=== PATIENT | male | born 1990 | race Caucasian/White ===

== ENCOUNTER 2017-05-11 13:27 | Outpatient (RCR) | payer OTHER | END 2017-05-27 13:22 | disposition home or self-care (01) | LOC: WSOH 13:27 | DX: S90.32XA Contusion of left foot, initial encounter (principal); W20.8XXA Other cause of strike by thrown, projected or falling object, initial encounter; Y92.512 Supermarket, store or market as the place of occurrence of the external cause; Y99.0 Civilian activity done for income or pay; Z88.0 Allergy status to penicillin ==

== ENCOUNTER 2018-01-24 18:34 | Emergency (ER) | payer BC ==
[~2018-01-24] VITALS: Ht 175.3 cm; Wt 97.7 kg
[2018-01-24 18:41] VITALS: TEMP 98.1
[2018-01-24] MEDS ORDERED: BACTRIM DS 8001 TAB PO (19:24)
[2018-01-24 20:02] VITALS: BP 122/79; PULSE 87
== END 2018-01-24 20:03 | disposition home or self-care (01) ==
LOC: COL.ER 18:34
DX: L03.115 Cellulitis of right lower limb (principal); F17.210 Nicotine dependence, cigarettes, uncomplicated

== ENCOUNTER 2018-01-26 00:01 | Emergency (ER) | payer BC ==
[~2018-01-26] VITALS: Ht 175.3 cm; Wt 97.7 kg
[~2018-01-26 00:01] MED LIST: BACTRIM DS 8001 TAB PO
[2018-01-26 00:08] VITALS: BP 122/76; TEMP 99.3
[2018-01-26] MEDS ORDERED: OMNICEF 300MG300 MG PO (00:33)
[2018-01-26] MEDS ORDERED: ZOFRAN ODT4 MG PO (00:33)
[2018-01-26] MEDS ORDERED: NORCO 325 MG-51 TAB PO (00:33)
[2018-01-26 00:48] VITALS: PULSE 84
== END 2018-01-26 00:50 | disposition home or self-care (01) ==
LOC: COL.ER 00:01
DX: L03.115 Cellulitis of right lower limb (principal)

== ENCOUNTER 2019-03-14 17:21 | Emergency (ER) | payer BC ==
[~2019-03-14] VITALS: Ht 175.3 cm; Wt 113.6 kg
[~2019-03-14 17:21] MED LIST changes: +NORCO 325 MG-51 TAB PO; +OMNICEF 300MG300 MG PO; +ZOFRAN ODT4 MG PO
[2019-03-14 17:36] VITALS: BP 126/73; TEMP 98.6
[2019-03-14] MEDS ORDERED: NORCO 325 MG-51 TAB PO (18:16)
[2019-03-14] MEDS ORDERED: BACTRIM DS 8001 TAB PO (18:16)
[2019-03-14 18:33] VITALS: PULSE 90
== END 2019-03-14 18:34 | disposition home or self-care (01) ==
LOC: COL.ER 17:21
DX: L02.211 Cutaneous abscess of abdominal wall (principal); G43.909 Migraine, unspecified, not intractable, without status migrainosus; F17.210 Nicotine dependence, cigarettes, uncomplicated; Z90.89 Acquired absence of other organs; Z88.0 Allergy status to penicillin; Z90.49 Acquired absence of other specified parts of digestive tract; Z23 Encounter for immunization

== ENCOUNTER → 2021-05-14 | Outpatient (CLI) | payer OTHER | LOC: ZCOL.LAB 09:56 | DX: U07.1 COVID-19 (principal) ==

== ENCOUNTER 2021-05-31 09:04 | Emergency (ER) | payer OTHER ==
[~2021-05-31] VITALS: Ht 175.3 cm; Wt 113.6 kg
[2021-05-31 09:15] VITALS: TEMP 98
[2021-05-31 10:22] LABS: COLLECTION METHOD CLEAN CATCH
[2021-05-31 10:25] LABS: BASO # 0.1 K/mm3 (0.0-0.2); BASO % 0.8 % (0.0-2.0); EOS # 0.3 K/mm3 (0.0-0.7); EOS % 4.7 % (0.0-4.0); GRAN # 3.3 K/mm3 (1.4-6.5); GRAN % 51.9 % (42.2-75.2); HEMATOCRIT 49.5 % (42.0-52.0); HEMOGLOBIN 18.2 g/dl (13.5-18.0); LYMPH # 2.1 K/mm3 (1.2-3.4); LYMPH % 32.1 % (20.0-51.0); MEAN CELL VOLUME 84 fl (80.0-100.0); MEAN CORPUSCULAR HEMOGLOBIN 31 pg (27-31); MEAN CORPUSCULAR HGB CONC 37 g/dl (33.0-37.0); MEAN PLATELET VOLUME 10.8 fl (7.4-10.4); MONO # 0.7 K/mm3 (0.1-0.6); MONO % 10.2 % (1.7-9.3); PLATELET COUNT 234 K/mm3 (130-400); RED BLOOD COUNT 5.89 M/mm3 (4.20-5.60); REDCELL DISTRIBUTION WIDTH-CV 11.9 % (11.5-14.5)
[2021-05-31 10:29] LABS: PH 6 (5-8); SQUAMOUS EPITHELIAL None Seen /hpf (0-10); URINE APPEARANCE Clear (CLEAR/HAZY); URINE BACTERIA None Seen /hpf (NONE SEEN); URINE BILIRUBIN Negative (NEGATIVE); URINE BLOOD Negative (NEGATIVE); URINE COLOR Straw (YELLOW); URINE GLUCOSE 3+ (NEGATIVE); URINE KETONE 1+ (NEGATIVE); URINE LEUKOCYTE ESTERASE Negative (NEGATIVE); URINE NITRATE Negative (NEGATIVE); URINE PROTEIN(semi-quant) Negative (NEGATIVE); URINE RBC None Seen /hpf (0-2); URINE UROBILINOGEN Negative (NEGATIVE)
[2021-05-31 11:11] LABS: ALBUMIN 4.8 gm/dL (3.5-5.0); BILIRUBIN,TOTAL 0.3 mg/dL (0.2-1.2); CALCIUM 9.6 mg/dL (8.4-10.2); CREATININE, serum 1.23 mg/dL (0.72-1.25); POTASSIUM 4.1 mmol/L (3.5-4.5); TOTAL PROTEIN 8.4 gm/dL (6.2-8.1)
[2021-05-31] MEDS ORDERED: GLUCOPHAGE500 MG/TAB PO (11:17)
[2021-05-31 11:30] VITALS: BP 131/83; PULSE 88
== END 2021-05-31 11:30 | disposition home or self-care (01) ==
LOC: COL.ER 09:04
PROVIDERS: Personal Emergency Response Attendant
DX: E11.65 Type 2 diabetes mellitus with hyperglycemia (principal); Z87.891 Personal history of nicotine dependence; Z79.84 Long term (current) use of oral hypoglycemic drugs
CPT/HCPCS: J1815; J7030